=== PATIENT | female | born 1960 | race Two or more races ===

== ENCOUNTER 2017-06-14 17:55 | Emergency (ER) | payer MEDICAID, OTHER ==
[2017-06-14 18:01] VITALS: TEMP 100.7
[2017-06-14] MEDS ORDERED: HYDROmorphONE/DILAUDID 1 MG/ML INJ IVP ONE (18:17)
[2017-06-14] MEDS ORDERED: ONDANSETRON 4 MG/2 ML VIAL IVP ONE ×2 (18:17→19:14)
[2017-06-14] MEDS ORDERED: NS 1,000 ML IV ONE ×2 (18:17)
--- NOTE | 2017-06-14 18:17 | EDPHY ---
H & P Stated Complaint: abdominal pain N/V starting last night - Personal History Current Tetanus/Diphtheria Vaccine: Yes Current Tetanus Diphtheria and Acellular Pertussis (TDAP): Yes Tetanus Vaccine Date: < 10 years - Medical/Surgical History Hx Asthma: No Hx Chronic Respiratory Disease: No Hx Diabetes: No Hx Cardiac Disease: Yes Hx Renal Disease: No Hx Cirrhosis: No Hx Alcoholism: No Hx HIV/AIDS: No Hx Splenectomy or Spleen Trauma: No Other PMH: hyperlipidemia. kidney infection - Social History Smoking Status: Never smoked Time Seen by Provider: 06/14/17 17:58 Constitutional: Initial Vital Signs Temperature (C) 38.2 C 06/14/17 17:57 Heart Rate 121 H 06/14/17 17:57 Respiratory Rate 20 06/14/17 17:57 Blood Pressure 120/78 06/14/17 17:57 O2 Sat (%) 98 06/14/17 17:57 O2 Delivery Mode Room Air O2 (L/minute) 2 Allergies/Adverse Reactions: No Known Allergies Allergy (Unverified 06/14/17 17:56) Home Medications: Medication Instructions Recorded Atorvastatin Calcium 06/14/17 Hydrocodone/APAP 5/325 [[place] 1 - 2 each PO Q6 PRN #20 tab 06/14/17 5/325] Nitrofurantoin 06/14/17 Ondansetron Odt [Zofran Odt] 4 mg PO Q4PRN PRN #20 tab 06/14/17 Medical Decision Making - Diagnostics Imaging: Discussed imaging studies w/ forest management teacher Radiologist - Diagnostics Imaging Results: Imaging Impressions Abdomen CT 06/14/17 18:17 Impression: 1. No acute findings in the abdomen or pelvis 2. Benign 1 cm left adrenal myelolipoma. 3. Additional findings, as above. Findings discussed with Jer Escalera MD on June 14, 2017 at 2003 hours. ED Course/Re-evaluation: CHIEF COMPLAINT: Abdominal pain, vomiting HISTORY OF PRESENT ILLNESS: This patient is a 56 year old female arriving with her complaining of stomach pain, nausea, and vomiting onset last last night. She vomited about 8 times over night. Her stomach was quite distended and bloated, but this has since mostly resolved. This morning, her stomach was increasingly painful and she developed a headache and body aches. She endorses subjective fever and chills. She denies diarrhea. She has also had UTI symptoms over the past two days which seem to be worse despite treatment with antibiotics. She has history of , but no other abdominal surgeries. She denies chest pain, shortness of breath, hematemesis, hematochezia, melena, or other associated symptoms. REVIEW OF SYSTEMS: A 10 point review of systems was performed and is negative with the exception of the elements mentioned in the history of present illness. PHYSICAL EXAM: HR, BP, O2 Sat, RR. Temp noted General Appearance: Alert, well hydrated, appropriate, and non-toxic appearing. Head: Atraumatic without scalp tenderness or obvious injury Eyes: Pupils equal, round, reactive to light and accommodation, EOMI, no trauma , no injection. Ears: Clear bilaterally, no perforation, normal landmarks Nose: Atraumatic, no rhinorrhea, clear. Throat: There is no erythema or exudates, no lesions, normal tonsils, mucus membranes moist. Neck: Supple, nontender, no lymphadenopathy. Respiratory: No retractions, no distress, no wheezes, and no accessory muscle use. Lungs are clear to auscultation bilaterally. Cardiovascular: Regular rate and rhythm, no murmurs, rubs, or gallops. Good capillary refill all extremities. Gastrointestinal: Diffuse abdominal tenderness. Abdomen is soft, non-distended, no masses, no rebound, no guarding, no peritoneal signs. Musculoskeletal: Normal active ROM of all extremities, atraumatic. Neurological: Alert, appropriate, and interactive. Nonfocal neuro exam. Skin: No rashes, good turgor, no nodules on palpation. Past medical history: Hyperlipidemia. Kidney infection. Past surgical history: section Family history: Noncontributory Social history: . at bedside. Lives in [place]. DIFFERENTIAL DIAGNOSIS: The differential diagnosis for the patient's abdominal pain included but was not limited to ovarian cyst, pelvic inflammatory disease, ovarian torsion, urinary tract infection, cholecystitis, and appendicitis. MEDICAL DECISION MAKIN56 year old female presents with 24 hour history of stomach pain, nausea, and vomiting. Exam reveals soft, diffusely tender abdomen. IV established. Plan to administer 1mg IV Dilaudid, 4mg IV Zofran, 1L IV NS for symptom relief. Plan for I-stat, CT abdomen/pelvis with contrast. Plan for labs including CBC, chemistries, liver, lipase, UA. 18:40 Creatinine 0.4 mg/dL. Plan to proceed with CT abdomen/pelvis with contrast. 18:[address] Escalera at shift change. (Luis Oleary) I assumed care of the patient at 6:00 p.m. pending laboratory and imaging studies. I personally evaluated the patient at 7:15 p.m.. She is given additional 4 mg of IV Zofran. The patient continues to complain of abdominal pain, distention, bloating and nausea. Patient's CT scan of the abdomen pelvis demonstrates no evidence of perforation , obstruction, appendicitis or cholecystitis. I reviewed the images myself and discussed them with the radiologist. I reviewed the patient's laboratory studies which are within normal limits. I evaluated the patient with the historical interpreter at 8:00 p.m.. She is currently being treated for a urinary tract infection with Macrobid. The patient received IV Toradol and a sub dissociative dose of ketamine. I re-evaluated the patient at 9:45 p.m.. She is currently feeling much better. Her abdominal examination is reassuring. Clinically she has no evidence of a surgical abdomen. I believe her presentation is one consistent with acute gastroenteritis. She is comfortable being discharged home. She does understand that it is imperative she return to the emergency department for worsening pain, intractable vomiting, fever or other concerns. (Emmett Escalera) Differential Diagnosis: Differential diagnosis considered includes gastroenteritis, obstruction, perforation, cholecystitis, pancreatitis, appendicitis (Emmett Escalera) - Data Points Laboratory Results: Laboratory Results 06/14/17 18:25 06/14/17 18:25 06/14/17 06/14/17 06/14/17 20:15 18:25 18:25 WBC RBC Hgb POC Hgb Hct POC Hct MCV MCH MCHC RDW Plt Count MPV Neut % (Auto) Lymph % (Auto) [place] % (Auto) Eos % (Auto) Baso % (Auto) Nucleat RBC Rel Count Absolute Neuts (auto) Absolute Lymphs (auto) Absolute Monos (auto) Absolute Eos (auto) Absolute Basos (auto) Absolute Nucleated RBC Immature Gran % Immature Gran # POC Sodium Sodium 141 mEq/L mEq/L (134-144) POC Potassium Potassium 3.6 mEq/L mEq/L (3.5-5.2) POC Chloride Chloride 103 mEq/L mEq/L (97-110) Carbon Dioxide 23 mEq/l mEq/l (22-31) Anion Gap 15 mEq/L mEq/L (8-16) POC BUN BUN 17 mg/dL mg/dL (7-23) Creatinine 0.5 mg/dL L mg/dL (0.6-1.0) POC Creatinine Estimated GFR > 60 Glucose 106 mg/dL H mg/dL (70-100) POC Glucose Calcium 9.5 mg/dL mg/dL (8.5-10.4) Total Bilirubin 0.7 mg/dL mg/dL (0.1-1.4) Conjugated Bilirubin 0.2 mg/dL mg/dL (0.0-0.5) Unconjugated Bilirubin 0.5 mg/dL mg/dL (0.0-1.1) AST 26 IU/L IU/L (14-46) ALT 41 IU/L IU/L (9-52) Alkaline Phosphatase 115 IU/L IU/L (38-126) Total Protein 7.4 g/dL g/dL (6.3-8.2) Albumin 4.4 g/dL g/dL (3.5-5.0) Lipase 55 IU/L IU/L (23-300) Beta HCG, Qual NEGATIVE Urine Color YELLOW Urine Appearance CLEAR Urine pH 6.0 (5.0-7.5) Ur Specific [place] > 1.035 H (1.002-1.030) Urine Protein NEGATIVE (NEGATIVE) Urine Ketones NEGATIVE (NEGATIVE) Urine Blood 1+ H (NEGATIVE) Urine Nitrate NEGATIVE (NEGATIVE) Urine Bilirubin NEGATIVE (NEGATIVE) Urine Urobilinogen NEGATIVE EU EU (0.2-1.0) Ur Leukocyte Esterase NEGATIVE (NEGATIVE) Urine RBC 5-10 /hpf H /hpf (0-3) Urine WBC 1-3 /hpf /hpf (0-3) Ur Epithelial Cells 1+ /lpf /lpf (NONE-1+) Urine Mucus TRACE /lpf /lpf (NONE-1+) Urine Glucose NEGATIVE (NEGATIVE) 06/14/17 06/14/17 18:25 18:22 WBC 9.75 10^3/uL H 10^3/uL (3.80-9.50) RBC 5.17 10^6/uL 10^6/uL (4.18-5.33) Hgb 14.6 g/dL g/dL (12.6-16.3) POC Hgb 15.6 gm/dL gm/dL (12.6-16.3) Hct 41.0 % % (38.0-47.0) POC Hct 46 % % (38-47) MCV 79.3 fL L fL (81.5-99.8) MCH 28.2 pg pg (27.9-34.1) MCHC 35.6 g/dL g/dL (32.4-36.7) RDW 13.0 % % (11.5-15.2) Plt Count 207 10^3/uL 10^3/uL (150-400) MPV 9.2 fL fL (8.7-11.7) Neut % (Auto) 84.8 % H % (39.3-74.2) Lymph % (Auto) 9.3 % L % (15.0-45.0) [place] % (Auto) 4.6 % % (4.5-13.0) Eos % (Auto) 0.4 % L % (0.6-7.6) Baso % (Auto) 0.3 % % (0.3-1.7) Nucleat RBC Rel Count 0.0 % % (0.0-0.2) Absolute Neuts (auto) 8.26 10^3/uL H 10^3/uL (1.70-6.50) Absolute Lymphs (auto) 0.91 10^3/uL L 10^3/uL (1.00-3.00) Absolute Monos (auto) 0.45 10^3/uL 10^3/uL (0.30-0.80) Absolute Eos (auto) 0.04 10^3/uL 10^3/uL (0.03-0.40) Absolute Basos (auto) 0.03 10^3/uL 10^3/uL (0.02-0.10) Absolute Nucleated RBC 0.00 10^3/uL 10^3/uL (0-0.01) Immature Gran % 0.6 % % (0.0-1.1) Immature Gran # 0.06 10^3/uL 10^3/uL (0.00-0.10) POC Sodium 141 mEq/L mEq/L (134-144) Sodium POC Potassium 3.5 mEq/L mEq/L (3.3-5.0) Potassium POC Chloride 104 mEq/L mEq/L (97-110) Chloride Carbon Dioxide Anion Gap POC BUN 17 mg/dL mg/dL (7-23) BUN Creatinine POC Creatinine 0.4 mg/dL L mg/dL (0.6-1.0) Estimated GFR Glucose POC Glucose 111 mg/dL H mg/dL (70-100) Calcium Total Bilirubin Conjugated Bilirubin Unconjugated Bilirubin AST ALT Alkaline Phosphatase Total Protein Albumin Lipase Beta HCG, Qual Urine Color Urine Appearance Urine pH Ur Specific [place] Urine Protein Urine Ketones Urine Blood Urine Nitrate Urine Bilirubin Urine Urobilinogen Ur Leukocyte Esterase Urine RBC Urine WBC Ur Epithelial Cells Urine Mucus Urine Glucose Medications Given: Discontinued Medications Al Hydroxide/Mg Hydroxide (Maalox Susp) 30 ml PO ONCE ONE Stop: 06/14/17 20:28 Last Admin: 06/14/17 20:32 Dose: 30 ml Hydromorphone HCl (Dilaudid) 1 mg IVP EDNOW ONE Stop: 06/14/17 18:18 Last Admin: 06/14/17 18:21 Dose: 1 mg Hyoscyamine Sulfate (Levsin, Hyomax-Sl) 0.25 mg PO ONCE ONE Stop: 06/14/17 20:28 Last Admin: 06/14/17 20:32 Dose: 0.25 mg Sodium Chloride (Ns) 1,000 mls @ 0 mls/hr IV EDNOW ONE; Wide Open PRN Reason: Protocol Stop: 06/14/17 18:18 Last Admin: 06/14/17 18:21 Dose: 1,000 mls Sodium Chloride (Ns) 1,000 mls @ 0 mls/hr IV EDNOW ONE; Wide Open PRN Reason: Protocol Stop: 06/14/17 18:18 Last Admin: 06/14/17 18:34 Dose: 1,000 mls Ketamine HCl (Ketamine) 11.2 mg 0.2 mg/kg (11.2 mg) IVP EDNOW ONE Stop: 06/14/17 20:13 Last Admin: 06/14/17 21:20 Dose: 11.2 mg Ketorolac Tromethamine (Toradol) 15 mg IVP EDNOW ONE Stop: 06/14/17 20:13 Last Admin: 11/25/17 20:26 Dose: 15 mg Lidocaine (Lidocaine 2% Viscous) 15 ml PO ONCE ONE Stop: 06/14/17 20:28 Last Admin: 06/14/17 20:32 Dose: 15 ml Ondansetron HCl (Zofran) 4 mg IVP EDNOW ONE Stop: 06/14/17 18:18 Last Admin: 06/14/17 18:22 Dose: 4 mg Ondansetron HCl (Zofran) 4 mg IVP EDNOW ONE Stop: 06/14/17 19:15 Last Admin: 06/14/17 19:16 Dose: 4 mg Point of Care Test Results: 06/14/17 18:22 POC Sodium 141 POC Potassium 3.5 POC Chloride 104 POC BUN 17 POC Creatinine 0.4 L POC Glucose 111 H Departure - Departure Disposition: Home, Routine, Self-Care Clinical Impression: Acute gastroenteritis Condition: Good Instructions: Acute Nausea and Vomiting (ED) Additional Instructions: 1. Zofran as needed for nausea. 2. [place] as needed for pain. 3. Sometimes we are unable to diagnose an obvious cause of abdominal pain in the Emergency Department. Based upon our evaluation today, I believe your symptoms are secondary to a viral intestinal infection which should be self- limited. Because more serious conditions can be difficult to diagnose early in the course of their presentation, we ask that you return to the Emergency Department in 8-12 hours for a recheck if you are still having pain. This is necessary to exclude the development of a more serious condition such as appendicitis or other intra-abdominal emergency. In the event your pain markedly increases before that time or you develop intractable vomiting or fever return to the Emergency Department immediately. Referrals: [facility] [Other] - As per Instructions Print Language: Kinyarwanda Report Scribed for: Luis Oleary Report Scribed by: Pham Dewey Date of Report: 06/14/17 Time of Report: 18:38
[2017-06-14] MEDS ORDERED: HYDROmorphONE/DILAUDID 1 MG/ML INJ ONE (18:18)
[2017-06-14] MEDS ORDERED: ONDANSETRON 4 MG/2 ML VIAL ONE (18:18)
[2017-06-14 18:47] LABS: % IMMATURE GRANULYOCYTES 0.6 % (0.0-1.1); ABSOLUTE IMMATURE GRANULOCYTES 0.06 10^3/uL (0.00-0.10); ADD DIFF? NO; ADD MORPH? NO; ADD SCAN? NO; ATYPICAL LYMPHOCYTE FLAG 0 (0-99); FRAGMENT RBC FLAG 0 (0-99); HEMOGLOBIN 14.6 g/dL (12.6-16.3); LEFT SHIFT FLG 10 (0-99); LIPEMIA HEMOLYSIS FLAG 90 (0-99); MEAN CELL HEMOGLOBIN 28.2 pg (27.9-34.1); MEAN CELL HEMOGLOBIN CONCENTR. 35.6 g/dL (32.4-36.7); MEAN CELL VOLUME 79.3 fL (81.5-99.8); MEAN PLATELET VOLUME 9.2 fL (8.7-11.7); PLATELET CLUMPS FLAG 0 (0-99); PLATELET COUNT 207 10^3/uL (150-400); RED BLOOD CELL COUNT 5.17 10^6/uL (4.18-5.33)
[2017-06-14 18:54] LABS: ALANINE AMINOTRANSFERASE 41 IU/L (9-52); ALBUMIN 4.4 g/dL (3.5-5.0); ALKALINE PHOSPHATASE 115 IU/L (38-126); ANION GAP 15 mEq/L (8-16); ASPARTATE AMINOTRANSFERASE 26 IU/L (14-46); BILIRUBIN,TOTAL 0.7 mg/dL (0.1-1.4); BILIRUBIN-CONJUGATED 0.2 mg/dL (0.0-0.5); BILIRUBIN-UNCONJUGATED 0.5 mg/dL (0.0-1.1); CALCIUM 9.5 mg/dL (8.5-10.4); CARBON DIOXIDE 23 mEq/l (22-31); CHLORIDE 103 mEq/L (97-110); CREATININE 0.5 mg/dL (0.6-1.0); GLOMERULAR FILTRATION RATE > 60; GLUCOSE 106 mg/dL (70-100); POTASSIUM 3.6 mEq/L (3.5-5.2); SODIUM 141 mEq/L (134-144); TOTAL PROTEIN 7.4 g/dL (6.3-8.2)
[2017-06-14] MEDS ORDERED: IOPAMIDOL (ISOVUE-300) 100 ML BTL ONE (19:12)
[2017-06-14] MEDS ORDERED: KETOROLAC 15 MG/1 ML SDV IVP ONE (20:12)
[2017-06-14] MEDS ORDERED: KETAMINE 100 MG/10 ML SYR IVP ONE (20:12)
[2017-06-14] MEDS ORDERED: MAG HYDROX/AL HYDROX/SIMETH 30 ML UDCUP ONE (20:22)
[2017-06-14] MEDS ORDERED: LIDOCAINE 2% VISCOUS 15 ML UDCUP ONE (20:23)
[2017-06-14] MEDS ORDERED: LIDOCAINE 2% VISCOUS 15 ML UDCUP PO ONE (20:27)
[2017-06-14] MEDS ORDERED: HYOSCYAMINE SULFATE 0.125 MG TAB PO ONE (20:27)
[2017-06-14] MEDS ORDERED: MAG HYDROX/AL HYDROX/SIMETH 30 ML UDCUP PO ONE (20:27)
[2017-06-14 20:37] VITALS: RESP 16
[2017-06-14 20:39] LABS: COLOR YELLOW; LEUKOCYTE ESTERASE,URINE NEGATIVE (NEGATIVE); NITRITE,URINE NEGATIVE (NEGATIVE)
[2017-06-14 20:43] LABS: MUCUS TRACE /lpf (NONE-1+)
[2017-06-14 21:24] VITALS: BP 116/69
[2017-06-14] MEDS ORDERED: HYDROCOD/APAP 5/325 PREPACK#6 BTL TAKEHOME ONE (21:45)
[2017-06-14] MEDS ORDERED: ONDANSETRON 4MG PREPACK#2 BTL TAKEHOME ONE (21:45)
[2017-06-14 22:04] VITALS: PULSE 92; O2SAT 98
== END 2017-06-14 22:04 | disposition home or self-care (01) ==
DX: K52.9 Noninfective gastroenteritis and colitis, unspecified (principal); E86.9 Volume depletion, unspecified
CPT/HCPCS: 82947-QW; 96374; J1170; J1885; J2405; Q9967

== ENCOUNTER → 2017-08-01 | Outpatient (CLI) | payer MEDICAID | LOC: FIMAGING 13:59 | PROVIDERS: ATTEND Physician Assistant | DX: Z12.31 Encounter for screening mammogram for malignant neoplasm of breast (principal) ==

== ENCOUNTER → 2018-08-07 | Outpatient (CLI) | payer MEDICAID | LOC: FIMAGING 13:24 | PROVIDERS: ATTEND Physician Assistant | DX: D25.9 Leiomyoma of uterus, unspecified (principal); R39.198 Other difficulties with micturition; K76.0 Fatty (change of) liver, not elsewhere classified ==

== ENCOUNTER → 2018-08-27 | Outpatient (CLI) | payer MEDICAID | LOC: FIMAGING 15:11 | PROVIDERS: ATTEND Physician Assistant | DX: Z12.31 Encounter for screening mammogram for malignant neoplasm of breast (principal) ==